=== PATIENT | male | born 1965 | race Caucasian/White ===

== ENCOUNTER → 2022-06-14 07:31 | Outpatient (CLI) | payer OTHER, SELFPAY ==
--- NOTE | 2022-06-15 01:56 | DI.NM.S_ITS ---
DATE OF SERVICE: 06/14/2022 PROCEDURE: Exercise stress test. INDICATIONS: Chest pain. CARDIAC STRESS: The patient underwent exercise stress test under the supervision of an attending staff. He walked on Logan protocol for 7 minutes and 23 seconds, achieved maximum heart rate of 106, which was 66% of target heart rate. The patient had 200 mg of metoprolol succinate an hour before the stress test. Resting blood pressure was 138/90. Peak blood pressure 180/96 mmHg. JOSE MANUEL was not calculated. The patient achieved 8.3 METs of workload. Baseline rhythm was sinus. There was slight T-wave inversion in inferolateral leads with ST flattening. During stress, no convincing ischemic changes seen. No significant arrhythmias. In recovery, patient remained to have those nonspecific ST-T changes. He felt fatigue and dyspnea during stress. CONCLUSION: This is a submaximal exercise stress test. The patient achieved 66% of target heart rate due to beta evelin prior to stress test. Resting blood pressure 138/90 and peak blood pressure 180/96. No chest pain, however, felt fatigue and dyspnea. Diminished exercise tolerance. Baseline nonspecific ST-T changes. No convincing ischemic changes or significant arrhythmias. Consider repeating stress test with imaging modality in absence of beta evelin. Alfred Gardiner - FRANCISCO JAVIER/rex/laura doc#: [id number]/job#: [id number] dd: 06/14/2022 16:19:00 dt: 06/15/2022 01:50:00 DICTATING /COPIES TO: Lara Burnett MD COPIES MNE: JIA;
== END ==
PROVIDERS: PCP Registered Nurse; Referring Provider Registered Nurse; Visit Provider Registered Nurse
DX: R07.89 Other chest pain (principal); E78.5 Hyperlipidemia, unspecified; I10 Essential (primary) hypertension
CPT/HCPCS: 93017

== ENCOUNTER 2023-09-21 06:48 | Emergency (ER) | payer BC, SELFPAY ==
[2023-09-21] VITALS (9 sets, daily range): BP systolic 154–189; BP diastolic 79–95; PULSE 60–92; RESP 12–20; TEMP 36.4–37; O2SAT 97–99
--- NOTE | 2023-09-21 06:55 | ED_ITS ---
HPI - Abdominal Pain General Chief Complaint: Abdominal Pain Stated Complaint: intestinal cramps, bloody stool Time Seen by Provider: 09/21/23 06:52 History of Present Illness HPI narrative: patient With past medical history of Crohn's, states that this has not caused any issues for the past 10 years. Is due for colonoscopy this year,comes into the ED from home for evaluation of lower abdominal cramping and bright red blood per rectum. patient states that he has been experiencing flu-like symptoms ongoing or persistent for the past 2 weeks, states that he is covered positive, however he states that yesterday he started developing lower abdominal cramping, nausea no vomiting, as well as noticing bright red blood per rectum. He states that nothing is making it better or worse no radiation, no recent travel no known sick contacts not on any blood thinners, he denies any other symptoms such as headache visual disturbances chest pain shortness of breath fever chills or any other GI/ symptoms time. Related Data Home Medications Medication Instructions Recorded Confirmed atorvastatin 10 mg tablet 10 mg PO DAILY 10/30/17 10/30/17 cetirizine 10 mg tablet 10 mg PO DAILY 10/30/17 10/30/17 metoprolol succinate 100 mg mg PO 10/30/17 10/30/17 capsule sprinkle, ext. release 24 hr ondansetron HCl 8 mg tablet 8 mg PO BID PRN 10/30/17 10/30/17 sumatriptan succinate 100 mg tablet 100 mg PO Q2-4H PRN 10/30/17 10/30/17 sumatriptan succinate 6 mg/0.5 mL 6 mg SUBCUT ONCE 10/30/17 10/30/17 subcutaneous needle-free injector Previous Rx's Medication Instructions Recorded erenumab-aooe 70 mg/mL 140 mg (2 mL) SUBCUT QMONTH #2 mL 10/30/17 subcutaneous auto-injector (Aimovig Autoinjector 140 mg/2 Pack () hydromorphone 3 mg rectal 3 mg IA Q8H PRN pain #6 ea 10/30/17 suppository hydromorphone 3 mg rectal 3 mg IA Q8H PRN pain #6 ea 03/25/18 suppository hydromorphone 3 mg rectal 3 mg IA Q8H PRN pain #6 ea 03/25/18 suppository hydromorphone 3 mg rectal 3 mg IA Q8H PRN pain #6 ea 03/25/18 suppository amoxicillin 875 mg-potassium 1 tab PO BID #20 tabs 09/21/23 clavulanate 125 mg tablet Allergies Allergy/AdvReac Type Severity Reaction Status Date / Time metoclopramide [From Reglan] AdvReac Intermediate Agitated Verified 10/30/17 09:21 Review of Systems Review of Systems Narrative: HEENT: Denies headache, eye drainage, eye irritation, head trauma, sore throat, voice change Cardiovascular: Denies any chest pain, palpitations, shortness of breath, tachycardia Respiratory: Denies any shortness of breath, cough, wheeze, stridor GI/: Denies any, nausea, vomiting, diarrhea,, melanotic stools, urinary frequency, urinary retention, dysuria, hematuria Positive for Cramping and bright red blood per rectum MSK: Denies any joint pain, muscle pains, swelling Skin: Denies any rashes, lesions, discoloration Neuro: Denies any headache, lightheadedness, dizziness, fainting, weakness Psych: Denies SI/HI Patient History Social History Smoking Status: Never smoker Smoking Status: Never smoker Exam Narrative Exam Narrative: General: Cooperative, comfortable, well-developed, not in acute distress HEENT: Normocephalic, atraumatic, PERRLA, normal sclera, eyelids normal, Neck: Active full range of motion, atraumatic Chest: Normal to inspection, negative crepitus, no overlying erythema ecchymosis Respiratory: Normal respiratory effort, not in acute respiratory distress, clear to auscultation bilaterally negative cough, wheeze, tachypnea, rhonchi, rales Cardiology: Regular rate rhythm negative gallop, murmur, rubs GI/: Normal to inspection, soft, nonrigid, mild tenderness to palpation to lower abdomen, rectal exam: Hemoccult positive, brown stool noted to the glove, anal tag noted but no internal or external hemorrhoids palpated, no anal fissures noted remainder of exam within normal limits MSK: Full range of active range of motion of all 4 extremities, atraumatic Skin: No rashes lesions noted Neuro: Alert awake oriented x3, moves all 4 extremities spontaneously, cranial nerves intact, able to answer all questions appropriately follows commands appropriately Psych: Cooperative, negative suicidal or homicidal ideations Initial Vital Signs Initial Vital Signs: Vital Signs Temperature 97.6 F 09/21/23 07:03 Pulse Rate 92 H 09/21/23 07:03 Respiratory Rate 18 09/21/23 07:03 Blood Pressure 189/79 H 09/21/23 07:03 Pulse Oximetry 97 09/21/23 07:03 Oxygen Delivery Method Room Air 09/21/23 07:03 Course Course Course Narrative: review of previous records does not show patient with previous cardiac echo [id number]: reviewed patient's CBC, hemoglobin 15.7, mild leukocytosis in setting of possible colitis, Crohn's flare-up 0748: Chem panel reviewed, potassium 3.2, will replete here, normal creatinine/GFR 0815: urinalysis not consistent with an acute urinary tract infection Orders Ordered: ED Orders 09/21/23 07:06 CT abdomen pelvis w con Stat 09/21/23 07:10 Complete Blood Count AUTO DIFF Stat Comprehensive Metabolic Panel Stat Lipase Stat MAG [Magnesium] Stat Discontinued Medications Amoxicillin/Clavulanate Potassium (Amoxicillin/Clav 875/125 Mg) 1 tab PO NOW ONE Stop: 09/21/23 08:54 Sodium Chloride (Normal Saline 0.9%) 1,000 mls @ 1,000 mls/hr IV BOLUS ONE Stop: 09/21/23 08:04 Last Admin: 09/21/23 07:18 Dose: 1,000 mls/hr Documented By: HOMERO Morphine Sulfate (Morphine 4 Mg/Ml Inj) 4 mg IV NOW ONE Stop: 09/21/23 07:06 Last Admin: 09/21/23 07:18 Dose: 4 mg Documented By: HOMERO Ondansetron HCl (Ondansetron 4 Mg/2 Ml Inj) 4 mg IV NOW ONE Stop: 09/21/23 07:06 Last Admin: 09/21/23 07:18 Dose: 4 mg Documented By: HOMERO Vital Signs Vital signs: Vital Signs - 8 hr 09/21/23 07:03 09/21/23 07:18 09/21/23 07:20 Temperature 97.6 F Pulse Rate 92 H 74 Respiratory Rate 18 Blood Pressure 189/79 H 167/95 H Pulse Oximetry 97 Oxygen Delivery Method Room Air 09/21/23 07:20 09/21/23 07:30 09/21/23 07:30 Temperature Pulse Rate 75 72 Respiratory Rate 15 16 Blood Pressure 154/93 H Pulse Oximetry 99 99 Oxygen Delivery Method MDM - Abdominal Pain Differential Diagnosis Differential diagnosis: Likely abdominal pain, constipation, diverticulitis, gastroenteritis, pancreatitis, small bowel obstruction and other ( Crohn's flare-up) Condition is:: Improved Medical Records Attestation: I reviewed the patient's medical records. Lab Data Attestation: I reviewed the patient's lab results. 09/21/23 07:10 09/21/23 07:10 Labs: Lab Results 09/21/23 Range/Units 07:10 WBC 12.3 H (4.5-11.0) X10^3/uL RBC 5.16 (4.5-5.9) X10^6/uL Hgb 15.7 (13.5-17.5) g/dL Hct 45.2 (41-53) % MCV 87.6 (80-100) fL MCH 30.5 (26-34) PG MCHC 34.8 (30-36) % RDW 13.1 (11.6-14.8) % Plt Count 212 (150-400) X10^3/uL Neut % (Auto) 74.6 (50-75) % Lymph % (Auto) 17.4 L (25-40) % Price % (Auto) 6.3 (3-14) % Eos % (Auto) 1.2 L (2-4) % Baso % (Auto) 0.5 (0-2) % Neut # (Auto) 9200 H (7460-3256) /uL Lymph # (Auto) 2100 (5048-5405) /uL Price # (Auto) 800 (0-900) /uL Eos # (Auto) 100 (0-450) /uL Baso # (Auto) 100 (0-100) /uL Sodium 140 (137-145) mmol/L Potassium 3.2 L (3.4-5.1) mmol/L Chloride 110 H (98-107) mmol/L Carbon Dioxide 21 L (22-32) mmol/L BUN 10 (9-20) mg/dL Creatinine 1.02 (0.66-1.25) mg/dL Estimated GFR > 60 (>60) mL/min BUN/Creatinine Ratio 9.8 (6-22) Glucose 121 H (80-110) mg/dL Calcium 9.2 (8.4-10.2) mg/dL Magnesium 2.0 (1.6-2.3) mg/dL Total Bilirubin 1.5 H (0.2-1.3) mg/dL AST 30 (17-59) IU/L ALT 31 (<50) IU/L Alkaline Phosphatase 112 (38-126) U/L Total Protein 7.8 (6.3-8.2) g/dL Albumin 4.4 (3.5-5.0) g/dL Globulin 3.4 (1.7-4.1) g/dL Albumin/Globulin Ratio 1.3 (1.0-2.8) Lipase 104 (23-300) U/L Point of care testing: Urine Dip Bedside Urine Glucose Negative Bedside Urine Bilirubin - Negative Bedside Urine Ketone - Negative Urine Specific Phyllis 1.010 Bedside Urine Occult Blood - Negative Bedside Urine pH 7.0 Bedside Urine Protein - Negative Bedside Urine Urobilinogen - Negative Bedside Urine Nitrite - Negative Bedside Urine Leukocytes - Negative Esterase Imaging Data CT scan - abdomen/pelvis: Radiologist's Impression: IMPRESSION: Findings moderate length segment colitis in the distal descending and sigmoid colon. Findings are most likely infectious or inflammatory. Although there are diverticula in the area, focal diverticulitis is felt less likely given length of involved segment. No bowel obstruction. No perforation or abscess formation. Mild hepatic steatosis. Nonobstructing left intrarenal calculus. MDM Narrative Medical decision making narrative: patient is 58-year-old male past medical history of hyperlipidemia, Crohn's, presents to the emergency department for lower abdominal cramping, flu-like symptoms as well as bright red blood per rectum. Lab work with mild leukocytosis, CT scan showing colitis consistent with possible Crohn's flare up versus diverticulitis, given patient with leukocytosis and CT scan concerning for possible diverticulitis we will prophylactically treat patient for diverticulitis with Augmentin. Patient instructed on strict return precautions, understands and agrees with being discharged home with outpatient follow-up. Patient verbalized understanding with need for follow-up with PCP and GI doctor. Patient is safe for discharge home Discharge Plan Departure Patient Disposition: Home Clinical Impression: Diverticulitis Instructions: Diverticulitis Prescriptions: New amoxicillin-pot clavulanate 875-125 mg tablet 1 tab PO BID Qty: 20 0RF No Action cetirizine 10 mg tablet 10 mg PO DAILY atorvastatin 10 mg tablet 10 mg PO DAILY ondansetron HCl 8 mg tablet 8 mg PO BID PRN metoprolol succinate 100 mg cap,sprinkle,ER 24hr dose pack PO sumatriptan succinate 100 mg tablet 100 mg PO Q2-4H PRN sumatriptan succinate 6 mg/0.5 mL needle-free injector 6 mg SUBCUT ONCE erenumab-aooe [Aimovig Autoinjector (2 Pack)] 70 mg/mL auto-injector 140 mg SUBCUT QMONTH Qty: 2 11RF Rx Instructions: administer as two 70 mg injections at separate sites hydromorphone 3 mg suppository 3 mg IA Q8H PRN (Reason: pain) Qty: 6 0RF hydromorphone 3 mg suppository 3 mg IA Q8H PRN (Reason: pain) Qty: 6 0RF hydromorphone 3 mg suppository 3 mg IA Q8H PRN (Reason: pain) Qty: 6 0RF hydromorphone 3 mg suppository 3 mg IA Q8H PRN (Reason: pain) Qty: 6 0RF Referrals: Gabriella Gonzalez ARNP [Primary Care Provider] - Stand Alone Forms: Patient Portal/API
--- NOTE | 2023-09-21 07:06 | DI.CT.S_ITS ---
PROCEDURE: CT ABDOMEN PELVIS W CON INDICATIONS: Lower abd cramping/ pain, hx of crohns TECHNIQUE: After the administration of intravenous contrast, axial sections acquired from the lung bases to the pubic symphysis. Coronal and sagittal reformats were performed. For radiation dose reduction, the following was used: automated exposure control, adjustment of mA and/or kV according to patient size. COMPARISON: None. FINDINGS: Image quality: Diagnostic. Lower Chest: No significant findings. ABDOMEN: Liver: Mild hepatic steatosis. No visible mass. Gallbladder: No wall thickening or calcified stones. Biliary ducts: No biliary dilation. Pancreas: Normal size and morphology without visible ductal dilatation or inflammation. Spleen: Size is within normal limits. Adrenal Glands: No adrenal nodules. Kidneys and Ureters: Symmetric enhancement. No hydronephrosis or hydroureter. Nonobstructing left intrarenal calcification and lower pole cyst. Stomach and Bowel: There is wall thickening for a moderate length segment involving the distal descending and proximal sigmoid colon. There are several diverticula in the region. There is moderate pericolonic inflammation. Scattered diverticula elsewhere in the colon. Normal appendix. Stomach and small bowel loops are normal caliber. Peritoneum: Trace dependent pelvic fluid. No focal fluid collections. No free air. Ventral Wall: Tiny fat containing umbilical hernia. Abdominal Nodes: No retroperitoneal or mesenteric adenopathy by size criteria. Vessels: The abdominal aorta, IVC, and portal vein are of normal caliber. PELVIS: Pelvic Organs: Unremarkable. Bladder: No bladder wall thickening, accounting for underdistention. Pelvic Nodes: No enlarged lymph nodes. Miscellaneous: No inguinal hernias are seen. Bones: Partial ankylosis of both sacroiliac joints. Bridging osteophytosis in the thoracolumbar spine. IMPRESSION: Findings moderate length segment colitis in the distal descending and sigmoid colon. Findings are most likely infectious or inflammatory. Although there are diverticula in the area, focal diverticulitis is felt less likely given length of involved segment. No bowel obstruction. No perforation or abscess formation. Mild hepatic steatosis. Nonobstructing left intrarenal calculus. Dictated by: Maria Del Rosario Alexander M.D. on 09/21/2023 at 8:29 Approved by: Maria Del Rosario Alexander M.D. on 09/21/2023 at 8:34
[2023-09-21] MEDS: SODIUM CHLORIDE 0.9% 1,000 ML 1000 ML IV (07:18)
[2023-09-21] MEDS: MORPHINE 4 MG/ML INJ IV (07:18)
[2023-09-21] MEDS: ONDANSETRON 4 MG/2 ML INJ IV (07:18)
[2023-09-21 07:19] LABS: Add Manual Diff / Slide Review NO; Basophils Absolute Auto 100 /uL (0-100); Basophils Percent Auto 0.5 % (0-2); Eosinophils Absolute Auto 100 /uL (0-450); Eosinophils Percent Auto 1.2 % (2-4); Hematocrit 45.2 % (41-53); Hemoglobin 15.7 g/dL (13.5-17.5); Lymphocytes Absolute Auto 2100 /uL (1100-4500); Lymphocytes Percent Auto 17.4 % (25-40); Mean Corpuscular HGB Conc 34.8 % (30-36); Mean Corpuscular Hemoglobin 30.5 PG (26-34); Mean Corpuscular Volume 87.6 fL (80-100); Monocytes Absolute Auto 800 /uL (0-900); Monocytes Percent Auto 6.3 % (3-14); Neutrophils Absolute Auto 9200 /uL (1500-7000); Neutrophils Percent Auto 74.6 % (50-75); Platelet Count 212 X10^3/uL (150-400); Red Blood Cell Count 5.16 X10^6/uL (4.5-5.9); Red Cell Distribution Width 13.1 % (11.6-14.8); White Blood Cell Count 12.3 X10^3/uL (4.5-11.0)
[2023-09-21 07:29] LABS: Alanine Aminotransferase 31 IU/L (<50); Albumin 4.4 g/dL (3.5-5.0); Albumin Globulin Ratio 1.3 (1.0-2.8); Alkaline Phosphatase 112 U/L (38-126); Aspartate Aminotransferase 30 IU/L (17-59); BUN Creatinine Ratio 9.8 (6-22); Bilirubin Total 1.5 mg/dL (0.2-1.3); Blood Urea Nitrogen 10 mg/dL (9-20); Calcium 9.2 mg/dL (8.4-10.2); Carbon Dioxide 21 mmol/L (22-32); Chloride 110 mmol/L (98-107); Estimated Glomerular Filt Rate > 60 mL/min (>60); Globulin 3.4 g/dL (1.7-4.1); Glucose 121 mg/dL (80-110); HEMOLYSIS < 15 (0-50); Lipase 104 U/L (23-300); Potassium 3.2 mmol/L (3.4-5.1); Sodium 140 mmol/L (137-145); Total Protein 7.8 g/dL (6.3-8.2)
[2023-09-21] MEDS: AMOXICILLIN/CLAV 875/125 MG 1 TAB PO (09:02)
== END 2023-09-21 09:20 | disposition home or self-care (01) ==
PROVIDERS: Emergency Provider Student in an Organized Health Care Education/Training Program; PCP Registered Nurse
DX: K57.92 Diverticulitis of intestine, part unspecified, without perforation or abscess without bleeding (principal)
CPT/HCPCS: 36415; 74177; 80053; 81003; 83690; 83735; 85025; 96361; 96374; 96375; 99284; J2270; J2405; Q9967